=== PATIENT | female | born 1965 | race Caucasian/White ===

== ENCOUNTER → 2016-10-13 | Outpatient (CLI) | payer BC | LOC: MW.CHPM 10:01 | PROVIDERS: ATTEND Anesthesiology | DX: Z51.81 Encounter for therapeutic drug level monitoring (principal); Z79.891 Long term (current) use of opiate analgesic | CPT/HCPCS: 80305 ==

== ENCOUNTER 2018-02-06 08:03 | Day surgery (SDC) | payer BC ==
[~2018-02-06 08:03] MED LIST: Lactated Ringers 1,000 ML IV SCH
[2018-02-06] MEDS ORDERED: Midazolam 1 MG/ML 2 ML SDV ONE (08:30)
[2018-02-06] MEDS ORDERED: Propofol 200 MG/20 ML SDV ONE ×2 (08:30→10:15)
[2018-02-06] MEDS ORDERED: fentaNYL 100 MCG/2 ML SDV ONE (08:30)
--- NOTE | 2018-02-06 08:40 | PCM.PREANE ---
Preanesthetic Assessment - Anesthesia/Transfusion/Family Hx Anesthesia History: Prior Anesthesia Without Reaction Other Type of Anesthesia Reaction Comment: states sister broke out in hives and HR dropped Family History of Anesthesia Reaction: No Transfusion History: No Prior Transfusion(s) Intubation History: Unknown - Review of Systems General: No Symptoms Pulmonary: No Symptoms Cardiovascular: No Symptoms Gastrointestinal: Abdominal Pain Neurological: No Symptoms Other: Reports: None - Physical Assessment Height: 1.65 m Weight: 80.286 kg ASA Class: 3 Mental Status: Alert & Oriented x3 Airway Class: Mallampati = 2 Dentition: Reports: Normal Dentition, [place](s) (x1 upper front) Thyro-Mental Finger Breadths: 3 Mouth Opening Finger Breadths: 3 ROM/Head Extension: Full Lungs: Clear to Auscultation, Normal Respiratory Effort Cardiovascular: Regular Rate, Regular Rhythm - Allergies Allergies/Adverse Reactions: Allergies Allergy/AdvReac Type Severity Reaction Status Date / Time No Known Allergies Allergy Verified 02/01/18 12:55 - Blood Blood Available: No - Anesthesia Plan Pre-Op Medication Ordered: None - Acknowledgements Anesthesia Type Planned: MAC Pt an Appropriate Candidate for the Planned Anesthesia: Yes Alternatives and Risks of Anesthesia Discussed w Pt/Guardian: Yes Pt/Guardian Understands and Agrees with Anesthesia Plan: Yes PreAnesthesia Questionnaire HEENT History: Reports: Allergic Rhinitis Cardiovascular History: Reports: High Cholesterol, Hypertension, Other (See Below) Other Cardiovascular History: rt femerol baloon angioplasty Respiratory History: Reports: Asthma, Sleep Apnea Other Respiratory History: does not use CPAP (states waiting for further sleep study) Gastrointestinal History: Reports: GERD, Other (See Below) Other Gastrointestinal History: abd pain and upset TRAINING COORDINATOR History: Reports: Musculoskeletal History: Reports: Arthritis, Back Pain, Chronic, Fracture Other Musculoskeletal History: hx fx ribs, chronic pain syndrome due to diabetic peripheral neuropathy Neurological History: Reports: CVA, Neuropathy, Diabetic, Seizure, Other (See Below) Other Neuro History: stroke at 16 y/o, states has seizures when her blood sugar is low while she is sleeping Psychiatric History: Reports: Anxiety, Depression Endocrine/Metabolic History: Reports: Diabetes, Type I (46 years) Dermatologic History: Reports: Other (See Below) Other Dermatologic History: acne - Past Surgical History Head Surgeries/Procedures: Reports: None HEENT Surgical History: Reports: Cataract Surgery Cardiovascular Surgical History: Reports: Other (See Below) (baloon angioplasty right leg) Dermatological Surgical History: Reports: Other (See Below) (Rt. CTR) - SUBSTANCE USE Smoking Status *Q: Former Smoker Tobacco Use Within Last Twelve Months: No Recreational Drug Use History: No - HOME MEDS Home Medications: Home Meds Clopidogrel Bisulfate [Clopidogrel] 75 mg PO DAILY 09/26/15 [History] Furosemide 20 mg PO ASDIRECTED PRN 09/26/15 [History] Insulin Aspart [NovoLOG] 1 injection SUBCUT DAILY 09/26/15 [History] Minocycline HCl 50 mg PO DAILY 09/26/15 [History] Montelukast [Singulair] 10 mg PO ONETIME PRN 09/26/15 [History] Sertraline [Zoloft] 100 mg PO BEDTIME 09/26/15 [History] Valsartan 160 mg PO BEDTIME 09/26/15 [History] buPROPion HCl [Wellbutrin Xl] 150 mg PO DAILY 09/26/15 [History] clonazePAM [Clonazepam] 1 tab PO BEDTIME 09/26/15 [History] Acetaminophen with Codeine [Tylenol with Codeine #3 Tablet] 1 tab PO ASDIRECTED PRN 02/01/18 [History] Aspirin [[place] Aspirin] 81 mg PO DAILY 02/01/18 [History] Celecoxib 100 mg PO DAILY PRN 02/01/18 [History] Clindamycin Phos/Benzoyl Perox [Clinda-Benzoyl Perox 1-5% Pump] 1 applic TOP ASDIRECTED PRN 02/01/18 [History] Gebauers Powers & Stretch 1 spray TOP ASDIRECTED PRN 02/01/18 [History] Insulin Glarg,Human.Rec.Analog [Lantus Solostar] 1 injection SUBCUT BID [History] Ketamine Hcl Powder 1 applic TOP ASDIRECTED PRN 02/01/18 [History] Levomefolate/B6/B12/Algal Oil [Metanx Capsule] 1 tab PO BID 02/01/18 [History] Lidocaine/Prilocaine [Lidocaine-Prilocaine Cream] 1 applic TOP ASDIRECTED PRN [History] MV-Min/Vit C/Glut/Lesvia Ac/HC124 [Airborne Tablet Chewable] 1 tab.chew CHEW DAILY 02/01/18 [History] Multivitamin [Multivitamins] 1 tab PO DAILY 02/01/18 [History] Rosuvastatin Calcium 10 mg PO BEDTIME 02/01/18 [History] Turmeric Root Extract [Turmeric] 500 mg PO DAILY 02/01/18 [History] Vit C/Ascorb Sod/Multivit-Min [Emergen-C 500 mg Chewable Tab] 1 tab.chew CHEW DAILY 02/01/18 [History] - CURRENT (IN HOUSE) MEDS Current Meds: Current Medications Lactated Ringer's (Ringers, Lactated) 1,000 mls @ 125 mls/hr IV ASDIRECTED SEAN Discontinued Medications Fentanyl (Sublimaze) Confirm Administered Dose 100 mcg .ROUTE .STK-MED ONE Stop: 02/06/18 08:31 Midazolam HCl (Versed 1 Mg/Ml) Confirm Administered Dose 2 mg .ROUTE .STK-MED ONE Stop: 02/06/18 08:31 Propofol (Diprivan 20 Ml) Confirm Administered Dose 200 mg .ROUTE .STK-MED ONE Stop: 02/06/18 08:31
--- NOTE | 2018-02-06 10:57 | PCM.OPNOTE ---
- General Post-Op/Procedure Note Date of Surgery/Procedure: 02/06/18 Operative Procedure(s): Esophagogastroduodenoscopy with gastric biopsy. Colonoscopy with ascending colon biopsy Pre Op Diagnosis: Abdominal bloating. Desire for colorectal cancer screening. Post-Op Diagnosis: Gastritis with hiatal hernia. No evidence of colonic neoplasia. Anesthesia Technique: MAC (ASA III) Primary Surgeon: Pankaj Pagan Condition: Good Free Text/Narrative:: DICTATION [id number] CPT CODE 88918/34053
[2018-02-06] MEDS ORDERED: Lactated Ringers 1,000 ML IV SCH (11:00)
--- NOTE | 2018-02-06 11:13 | PCM.POSTAN ---
POST ANESTHESIA ASSESSMENT - MENTAL STATUS Mental Status: Alert, Oriented - RESPIRATORY Respiratory Status: Respiratory Rate WNL, Airway Patent, O2 Saturation Stable - CARDIOVASCULAR CV Status: Pulse Rate WNL, Blood Pressure Stable - GASTROINTESTINAL GI Status: No Symptoms - POST OP HYDRATION Hydration Status: Adequate & Stable
--- NOTE | 2018-02-06 11:14 | PCM48HPAN ---
Post Anesthesia Note - EVALUATION WITHIN 48HRS OF ANESTHETIC Vital Signs in Normal Range: Yes Patient Participated in Evaluation: Yes Respiratory Function Stable: Yes Airway Patent: Yes Cardiovascular Function Stable: Yes Hydration Status Stable: Yes Pain Control Satisfactory: Yes Nausea and Vomiting Control Satisfactory: Yes Mental Status Recovered: Yes Resp Rate: 11
--- NOTE | 2018-02-06 13:18 | OR ---
SURGEON: Pankaj Pagan M.D. DATE OF PROCEDURE: 02/06/2018 OPERATION PERFORMED: Esophagogastroduodenoscopy with biopsy. ANESTHESIA: MAC. ASA CLASSIFICATION: III. PREOPERATIVE DIAGNOSIS: Abdominal bloating. POSTOPERATIVE DIAGNOSES: 1. Hiatal hernia. 2. Gastritis. DESCRIPTION OF PROCEDURE: The patient was taken to the endoscopy room and positioned on the endoscopy table in the left lateral decubitus position. Time-out was called for appropriate identification of the patient and procedure. Monitored anesthesia care was provided. The bite block was placed between the patient's teeth. The gastroscope was inserted through the bite block into the oropharynx and advanced with minimal difficulty through the esophagus and stomach into the duodenum where examination was carried out in a retrograde fashion. The duodenum shows no acute inflammatory changes or ulcerations. Stomach does show mild-to- moderate gastritis. Biopsies of the antrum were obtained. The gastroscope was retroflexed to visualize the proximal stomach where the hiatal hernia could be seen in a retroflexed view as well as in a forward view. As the scope was withdrawn, the GE junction was well defined and shows no acute inflammatory changes or ulcerations. The esophagus does show fair contractility. No mid or proximal lesions were identified. The vocal cords were not visualized as the scope was withdrawn. The patient tolerated the procedure well. Following colonoscopy, she was taken to recovery room in stable condition. DOLORES PLASENCIA /[id number]
--- NOTE | 2018-02-06 13:27 | OR ---
SURGEON: Pankaj Pagan M.D. DATE OF PROCEDURE: 02/06/2018 OPERATION PERFORMED: Colonoscopy with random ascending colon biopsy. ANESTHESIA: MAC. ASA CLASSIFICATION: III. PREOPERATIVE DIAGNOSIS: Desire for colorectal cancer screening. POSTOPERATIVE DIAGNOSIS: No evidence of neoplasia. DESCRIPTION OF PROCEDURE: With the patient having completed upper GI endoscopy, she was maintained in the left lateral decubitus position. The colonoscope was inserted into the rectum and advanced with moderate difficulty to the cecum where the colonoscope was retroflexed to visualize the ascending colon from below then straightened and slowly withdrawn. Random biopsies were obtained from the ascending colon. The remainder of the ascending colon, hepatic flexure, transverse colon, splenic flexure, descending colon, sigmoid colon, and rectum showed no other tumors, polyps, diverticula, or angiodysplastic changes. Once the colonoscope was withdrawn to the rectum, it was retroflexed to visualize the anal orifice from above. No tumors, polyps, or acute hemorrhoidal changes were noted. The colonoscope was then straightened, the rectum aspirated, and the colonoscope removed. The patient tolerated the procedure well and was taken to recovery room in stable condition. DOLROES PLASENCIA /[id number]
[2018-02-06 14:28] VITALS: BP 113/57
== END 2018-02-06 11:17 | disposition home or self-care (01) ==
LOC: MW.SDS 08:03
PROVIDERS: ATTEND Surgery
PROC: 0DB68ZX Excision of Stomach, Via Natural or Artificial Opening Endoscopic, Diagnostic (ICD-10-PCS; principal; 2018-02-06)
PROC: 0DBK8ZX Excision of Ascending Colon, Via Natural or Artificial Opening Endoscopic, Diagnostic (ICD-10-PCS; 2018-02-06)
DX: K29.50 Unspecified chronic gastritis without bleeding (principal); K44.9 Diaphragmatic hernia without obstruction or gangrene; E10.42 Type 1 diabetes mellitus with diabetic polyneuropathy; Z79.4 Long term (current) use of insulin; J45.909 Unspecified asthma, uncomplicated; G89.29 Other chronic pain; M54.5 Low back pain; F41.8 Other specified anxiety disorders; M15.9 Polyosteoarthritis, unspecified; I10 Essential (primary) hypertension; E78.5 Hyperlipidemia, unspecified; Z87.891 Personal history of nicotine dependence; Z79.82 Long term (current) use of aspirin; Z79.899 Other long term (current) drug therapy
CPT/HCPCS: 43239; 45380; J2250; J3010; J7120; 88305; 88312; J2704